=== PATIENT | male | born 1995 | race Caucasian/White ===

== ENCOUNTER → 2025-03-06 08:12 | Outpatient (REF) | payer OTHER, SELFPAY ==
[2025-03-06 09:02] LABS: Hematocrit 47.1 % (39.0-52.0); Hemoglobin 16.1 g/dL (13.0-18.0); Mean Corp Hgb Conc. 34.2 g/dL (33.0-37.0); Mean Corpuscular Volume 90.9 fL (80.0-94.0); Nucleated Red Blood Cells % 0 % (-); Platelet Count 312 10^3/uL (130-400); Red Cell Dist. Width 12.7 % (11.5-14.5)
[2025-03-06 09:58] LABS: ALT (SGPT) 66 U/L (0-50); AST (SGOT) 34 U/L (17-59); Albumin 4.9 g/dl (3.5-5.0); Alkaline Phosphatase 86 U/L (38-126); Blood Urea Nitrogen 10 mg/dl (9-20); Calcium 9.1 mg/dl (8.4-10.2); Carbon Dioxide 28 mmol/L (22-30); Chloride 105 mmol/L (98-107); Glucose 99 mg/dl (70-99); HDL Cholesterol 40 mg/dl; LDL Cholesterol, Calculated 148 mg/dl; Potassium 4.2 mmol/L (3.5-5.1); Sodium 140 mmol/L (135-145); Total Protein 7.8 g/dl (6.3-8.2); Very Low Density Lipoprotein 31 mg/dl (0-30); eGFR > 60.00
[2025-03-06 10:23] LABS: Glycohemoglobin (HgbA1c) 4.8 % (4.0-5.6)
[2025-03-06 10:38] LABS: TSH 0.74 uIU/ml (0.47-4.68)
== END ==
LOC: REG 08:12
PROVIDERS: ATTENDING PHYSICIAN Physician Assistant Medical
DX: F32.A Depression, unspecified (principal); F41.9 Anxiety disorder, unspecified; E66.01 Morbid (severe) obesity due to excess calories; R03.0 Elevated blood-pressure reading, without diagnosis of hypertension; R73.9 Hyperglycemia, unspecified
CPT/HCPCS: 36415; 80053; 80061; 83036; 84443; 85025

== ENCOUNTER → 2025-07-05 08:19 | Outpatient (REF) | payer OTHER, SELFPAY ==
[2025-07-05 10:37] LABS: ALT (SGPT) 70 U/L (0-50); AST (SGOT) 42 U/L (17-59); Albumin 5.0 g/dl (3.5-5.0); Alkaline Phosphatase 91 U/L (38-126); Blood Urea Nitrogen 13 mg/dl (9-20); Calcium 9.6 mg/dl (8.4-10.2); Carbon Dioxide 31 mmol/L (22-30); Chloride 101 mmol/L (98-107); Glucose 87 mg/dl (70-99); HDL Cholesterol 48 mg/dl; LDL Cholesterol, Calculated 170 mg/dl; Potassium 4.2 mmol/L (3.5-5.1); Sodium 140 mmol/L (135-145); Total Protein 8.3 g/dl (6.3-8.2); Very Low Density Lipoprotein 26 mg/dl (0-30); eGFR > 60.00
== END ==
LOC: REG 08:19
PROVIDERS: ATTENDING PHYSICIAN Physician Assistant Medical
DX: R74.01 Elevation of levels of liver transaminase levels (principal); Z87.898 Personal history of other specified conditions; E78.2 Mixed hyperlipidemia
CPT/HCPCS: 36415; 80053; 80061